=== PATIENT | male | born 1975 | race Hispanic/Latino ===

== ENCOUNTER 2022-08-27 14:22 | Emergency (ER) | payer OTHER ==
[~2022-08-27] VITALS: Ht 172.7 cm; Wt 95.7 kg
[2022-08-27] MEDS ORDERED: HYDRALAZINE HCL 20 MG/ML VIAL IV ONE (14:45)
[2022-08-27] MEDS ORDERED: HYDRALAZINE HCL 20 MG/ML VIAL ONE (15:18)
== END 2022-08-27 19:15 | disposition other institution (70) ==
LOC: FSED 14:35
DX: R42 Dizziness and giddiness (principal); I16.1 Hypertensive emergency; H53.2 Diplopia; I10 Essential (primary) hypertension
CPT/HCPCS: 70450; 80053; 82553; 84484; 85025; 93005; 99284; J0360